=== PATIENT | male | born 1955 | race Caucasian/White ===

== ENCOUNTER 2016-12-18 08:51 | Outpatient (CLI) | payer MEDICAID | END 2016-12-18 08:52 | disposition home or self-care (01) | DX: N05.9 Unspecified nephritic syndrome with unspecified morphologic changes (principal); R80.9 Proteinuria, unspecified ==

== ENCOUNTER 2016-12-18 08:54 | Outpatient (CLI) | payer MEDICAID | END 2016-12-18 08:55 | disposition home or self-care (01) | DX: Z00.8 Encounter for other general examination (principal) ==

== ENCOUNTER 2017-01-23 10:36 | Outpatient (CLI) | payer MEDICAID | END 2017-01-23 10:37 | DX: I42.9 Cardiomyopathy, unspecified (principal); I49.3 Ventricular premature depolarization; E78.5 Hyperlipidemia, unspecified; F17.200 Nicotine dependence, unspecified, uncomplicated; I73.9 Peripheral vascular disease, unspecified; R60.0 Localized edema; N18.9 Chronic kidney disease, unspecified ==

== ENCOUNTER 2017-03-15 07:32 | Outpatient (CLI) | payer MEDICAID | END 2017-03-15 07:33 | disposition home or self-care (01) | DX: K76.89 Other specified diseases of liver (principal) ==

== ENCOUNTER 2017-03-19 21:16 | Outpatient (CLI) | payer MEDICAID | END 2017-03-19 21:17 | disposition home or self-care (01) | DX: E11.9 Type 2 diabetes mellitus without complications (principal); E87.5 Hyperkalemia; F10.10 Alcohol abuse, uncomplicated ==

== ENCOUNTER 2017-03-19 21:18 | Outpatient (CLI) | payer MEDICAID | END 2017-03-19 21:19 | disposition home or self-care (01) | DX: R80.9 Proteinuria, unspecified (principal) ==

== ENCOUNTER 2017-03-21 10:28 | Outpatient (CLI) | payer MEDICAID | END 2017-03-21 10:29 | DX: E53.8 Deficiency of other specified B group vitamins (principal); E11.9 Type 2 diabetes mellitus without complications ==

== ENCOUNTER 2017-08-06 20:22 | Outpatient (CLI) | payer MEDICAID ==
[2017-08-06 19:12] LABS: CALCIUM 9.3 mg/dL (8.5-10.3); CREATININE 1.9 mg/dL (0.6-1.2)
[2017-08-06 19:28] LABS: HEMOGLOBIN A1C 1.27 g/dL
== END 2017-08-06 20:23 | disposition home or self-care (01) ==
LOC: LAB.N 20:22
PROVIDERS: ATTEND Nurse Practitioner Gerontology
DX: E11.9 Type 2 diabetes mellitus without complications (principal); N05.9 Unspecified nephritic syndrome with unspecified morphologic changes; R80.9 Proteinuria, unspecified
CPT/HCPCS: 36415; 80048; 82570; 83036; 84156

== ENCOUNTER 2017-10-14 17:33 | Outpatient (CLI) | payer MEDICAID ==
[2017-10-14 13:58] LABS: ALBUMIN/GLOBULIN RATIO 1.3 (1.0-2.2); BILIRUBIN,TOTAL 0.4 mg/dL (0.2-1.0); BUN - BLOOD UREA NITROGEN 39 mg/dL (6-20); CALCIUM 8.8 mg/dL (8.5-10.3); CARBON DIOXIDE - CO2 21 mmol/L (21-32); CHLORIDE 106 mmol/L (101-111); CREATININE 2.2 mg/dL (0.6-1.2); GFR - MDRD 30 (>89); GLUCOSE 101 mg/dL (70-100); MAGNESIUM 1.4 mg/dL (1.7-2.8); POTASSIUM 5.3 mmol/L (3.5-5.0); SODIUM 139 mmol/L (135-145); TOTAL PROTEIN 6.8 g/dL (6.7-8.2)
[2017-10-16 13:02] LABS: TEST RESULT REPORT
[2017-10-16 13:02] LABS: TEST RESULT REPORT
== END 2017-10-14 17:34 | disposition home or self-care (01) ==
LOC: LAB.N 17:33
PROVIDERS: ATTEND Specialist
DX: I42.9 Cardiomyopathy, unspecified (principal); I49.3 Ventricular premature depolarization; I10 Essential (primary) hypertension; E78.5 Hyperlipidemia, unspecified; I73.9 Peripheral vascular disease, unspecified; R60.0 Localized edema; N18.9 Chronic kidney disease, unspecified; F32.9 Major depressive disorder, single episode, unspecified; E10.9 Type 1 diabetes mellitus without complications; Z72.0 Tobacco use
CPT/HCPCS: 36415; 80053; 81599; 82465; 83704; 83718; 83735; 84478

== ENCOUNTER 2017-11-08 08:00 | Outpatient (CLI) | payer MEDICAID ==
[2017-11-08 19:03] LABS: CALCIUM 8.3 mg/dL (8.5-10.3); CREATININE 1.3 mg/dL (0.6-1.2); POTASSIUM 3.4 mmol/L (3.5-5.0)
== END 2017-11-08 08:01 | disposition home or self-care (01) ==
LOC: LAB.N 08:00
PROVIDERS: ATTEND Internal Medicine Nephrology
DX: N05.9 Unspecified nephritic syndrome with unspecified morphologic changes (principal)
CPT/HCPCS: 36415; 80048

== ENCOUNTER 2017-11-27 13:02 | Outpatient (CLI) | payer MEDICAID ==
[2017-11-27 19:32] LABS: CALCIUM 8.9 mg/dL (8.5-10.3); CREATININE 1.1 mg/dL (0.6-1.2)
== END 2017-11-27 13:03 | disposition home or self-care (01) ==
LOC: LAB.N 13:02
PROVIDERS: ATTEND Internal Medicine Nephrology
DX: N05.9 Unspecified nephritic syndrome with unspecified morphologic changes (principal)
CPT/HCPCS: 36415; 80048

== ENCOUNTER 2017-12-09 13:30 | Outpatient (CLI) | payer MEDICAID ==
[2017-12-09 19:16] LABS: BASOPHILS # (AUTO) 0.1 10^3/uL (0.0-0.1); BASOPHILS % (AUTO) 0.9 %; EOSINOPHILS # (AUTO) 0.5 10^3/uL (0.0-0.7); EOSINOPHILS % (AUTO) 6.5 %; HGB - HEMOGLOBIN 13.2 g/dL (14.0-18.0); LYMPHOCYTES % (AUTO) 14.1 %; MEAN CORPUSCULAR HEMOGLOBIN 31.3 pg (27.0-31.0); MEAN CORPUSCULAR HGB CONC 32.9 g/dL (32.0-36.0); MEAN CORPUSCULAR VOLUME 95.1 fL (80.0-94.0); MEAN PLATELET VOLUME 8.4 fL (7.4-11.4); MONOCYTES # (AUTO) 0.4 10^3/uL (0.0-1.0); MONOCYTES % (AUTO) 6.2 %; NEUTROPHILS % (AUTO) 72.3 %; PLT - PLATELET COUNT 168 10^3/uL (130-450); RED BLOOD COUNT 4.23 10^6/uL (4.70-6.10); RED CELL DISTRIBUTION WIDTH 14.5 % (12.0-15.0)
[2017-12-09 19:26] LABS: ALBUMIN/GLOBULIN RATIO 1.4 (1.0-2.2); ALKALINE PHOSPHATASE 65 IU/L (42-121); ALT ALANINE AMINOTRANSFERASE < 10 IU/L (10-60); AST ASPARTATE AMINOTRANSFERASE 11 IU/L (10-42); BILIRUBIN,TOTAL 0.9 mg/dL (0.2-1.0); BUN - BLOOD UREA NITROGEN 35 mg/dL (6-20); CALCIUM 9.1 mg/dL (8.5-10.3); CARBON DIOXIDE - CO2 27 mmol/L (21-32); CHLORIDE 97 mmol/L (101-111); CREATININE 1.4 mg/dL (0.6-1.2); GFR - MDRD 51 (>89); GLUCOSE 301 mg/dL (70-100); SODIUM 130 mmol/L (135-145); TOTAL PROTEIN 6.8 g/dL (6.7-8.2)
== END 2017-12-09 13:31 | disposition home or self-care (01) ==
LOC: LAB.N 13:30
PROVIDERS: ATTEND Physician Assistant
DX: I42.8 Other cardiomyopathies (principal); N28.9 Disorder of kidney and ureter, unspecified
CPT/HCPCS: 36415; 80053; 85025

== ENCOUNTER 2017-12-16 08:00 | Outpatient (CLI) | payer MEDICAID ==
[2017-12-16 19:35] LABS: BASOPHILS # (AUTO) 0.1 10^3/uL (0.0-0.1); BASOPHILS % (AUTO) 1.7 %; EOSINOPHILS # (AUTO) 0.6 10^3/uL (0.0-0.7); EOSINOPHILS % (AUTO) 7.9 %; LYMPHOCYTES # (AUTO) 1.1 10^3/uL (1.5-3.5); LYMPHOCYTES % (AUTO) 15.9 %; MEAN CORPUSCULAR HEMOGLOBIN 31.2 pg (27.0-31.0); MEAN CORPUSCULAR HGB CONC 32.1 g/dL (32.0-36.0); MEAN CORPUSCULAR VOLUME 97.2 fL (80.0-94.0); MEAN PLATELET VOLUME 9.5 fL (7.4-11.4); MONOCYTES # (AUTO) 0.5 10^3/uL (0.0-1.0); MONOCYTES % (AUTO) 7.8 %; NEUTROPHILS # (AUTO) 4.7 10^3/uL (1.5-6.6); NEUTROPHILS % (AUTO) 66.7 %; PLT - PLATELET COUNT 203 10^3/uL (130-450); RED BLOOD COUNT 4.48 10^6/uL (4.70-6.10); RED CELL DISTRIBUTION WIDTH 14.8 % (12.0-15.0)
[2017-12-16 19:51] LABS: ALBUMIN/GLOBULIN RATIO 1.3 (1.0-2.2); ALKALINE PHOSPHATASE 77 IU/L (42-121); ALT ALANINE AMINOTRANSFERASE 11 IU/L (10-60); AST ASPARTATE AMINOTRANSFERASE 12 IU/L (10-42); BILIRUBIN,TOTAL 0.8 mg/dL (0.2-1.0); BUN - BLOOD UREA NITROGEN 35 mg/dL (6-20); CALCIUM 9.5 mg/dL (8.5-10.3); CARBON DIOXIDE - CO2 30 mmol/L (21-32); CHLORIDE 91 mmol/L (101-111); CHOL/HDL RATIO 4.7 (<5.0); CHOLESTEROL 189 mg/dL; CREATININE 1.7 mg/dL (0.6-1.2); GFR - MDRD 41 (>89); GLUCOSE 376 mg/dL (70-100); HB2 TOTAL 15.3 g/dL; HDL CHOLESTEROL 40 mg/dL; HEMOGLOBIN A1C 1.24 g/dL; HEMOGLOBIN A1C % 9.6 % (4.6-6.2); LDL CHOLESTEROL,CALCULATED 72 mg/dL; LDL/HDL RATIO 1.8 (<3.6); SODIUM 131 mmol/L (135-145); TOTAL PROTEIN 7.1 g/dL (6.7-8.2); VLDL CHOLESTEROL 77 mg/dL
== END 2017-12-16 08:01 | disposition home or self-care (01) ==
LOC: LAB.N 08:00
PROVIDERS: ATTEND Nurse Practitioner Gerontology
DX: E11.22 Type 2 diabetes mellitus with diabetic chronic kidney disease (principal); I12.9 Hypertensive chronic kidney disease with stage 1 through stage 4 chronic kidney disease, or unspecified chronic kidney disease; N18.9 Chronic kidney disease, unspecified
CPT/HCPCS: 36415; 80053; 80061; 83036; 83721; 85025

== ENCOUNTER 2018-02-07 08:00 | Outpatient (CLI) | payer MEDICAID ==
[2018-02-07 19:10] LABS: ALBUMIN 4.1 g/dL (3.2-5.5); ALBUMIN/GLOBULIN RATIO 1.4 (1.0-2.2); ALKALINE PHOSPHATASE 71 IU/L (42-121); ALT ALANINE AMINOTRANSFERASE < 10 IU/L (10-60); AST ASPARTATE AMINOTRANSFERASE 11 IU/L (10-42); BILIRUBIN,TOTAL 0.9 mg/dL (0.2-1.0); BUN - BLOOD UREA NITROGEN 29 mg/dL (6-20); CALCIUM 9.3 mg/dL (8.5-10.3); CARBON DIOXIDE - CO2 26 mmol/L (21-32); CHLORIDE 102 mmol/L (101-111); CREATININE 1.2 mg/dL (0.6-1.2); GFR - MDRD 61 (>89); GLUCOSE 320 mg/dL (70-100); MAGNESIUM 1.8 mg/dL (1.7-2.8); SODIUM 136 mmol/L (135-145); TOTAL PROTEIN 7.1 g/dL (6.7-8.2)
== END 2018-02-07 08:01 | disposition home or self-care (01) ==
LOC: LAB.N 08:00
PROVIDERS: ATTEND Specialist
DX: I42.9 Cardiomyopathy, unspecified (principal); R60.9 Edema, unspecified
CPT/HCPCS: 36415; 80053; 83735; 83880

== ENCOUNTER 2018-02-20 08:00 | Outpatient (CLI) | payer MEDICAID ==
[2018-02-20 19:20] LABS: CALCIUM 8.9 mg/dL (8.5-10.3); CREATININE 2.2 mg/dL (0.6-1.2); MAGNESIUM 2.1 mg/dL (1.7-2.8)
== END 2018-02-20 08:01 | disposition home or self-care (01) ==
LOC: LAB.N 08:00
PROVIDERS: ATTEND Specialist
DX: I12.9 Hypertensive chronic kidney disease with stage 1 through stage 4 chronic kidney disease, or unspecified chronic kidney disease (principal); N18.9 Chronic kidney disease, unspecified
CPT/HCPCS: 36415; 80048; 83735

== ENCOUNTER 2018-03-14 07:36 | Outpatient (CLI) | payer MEDICAID ==
[2018-03-14 13:40] LABS: CALCIUM 8.9 mg/dL (8.5-10.3); CREATININE 1.3 mg/dL (0.6-1.2); MAGNESIUM 1.6 mg/dL (1.7-2.8)
== END 2018-03-14 07:37 | disposition home or self-care (01) ==
LOC: LAB.N 07:36
PROVIDERS: ATTEND Specialist
DX: I42.9 Cardiomyopathy, unspecified (principal); R06.09 Other forms of dyspnea; L97.529 Non-pressure chronic ulcer of other part of left foot with unspecified severity
CPT/HCPCS: 36415; 80048; 83735; 83880; 87070; 87077; 87205

== ENCOUNTER 2018-03-20 08:00 | Outpatient (CLI) | payer MEDICAID ==
[2018-03-20 19:17] LABS: BASOPHILS # (AUTO) 0.1 10^3/uL (0.0-0.1); BASOPHILS % (AUTO) 1.3 %; EOSINOPHILS # (AUTO) 0.2 10^3/uL (0.0-0.7); EOSINOPHILS % (AUTO) 4.8 %; HGB - HEMOGLOBIN 13.2 g/dL (14.0-18.0); LYMPHOCYTES # (AUTO) 0.7 10^3/uL (1.5-3.5); MEAN CORPUSCULAR HEMOGLOBIN 28.8 pg (27.0-31.0); MEAN CORPUSCULAR HGB CONC 31.3 g/dL (32.0-36.0); MEAN CORPUSCULAR VOLUME 91.7 fL (80.0-94.0); MEAN PLATELET VOLUME 8.7 fL (7.4-11.4); MONOCYTES # (AUTO) 0.4 10^3/uL (0.0-1.0); MONOCYTES % (AUTO) 7.1 %; NEUTROPHILS # (AUTO) 3.7 10^3/uL (1.5-6.6); NEUTROPHILS % (AUTO) 72.8 %; PLT - PLATELET COUNT 182 10^3/uL (130-450); RED BLOOD COUNT 4.59 10^6/uL (4.70-6.10); RED CELL DISTRIBUTION WIDTH 15.5 % (12.0-15.0); WHITE BLOOD COUNT 5.1 x10^3/uL (4.8-10.8)
[2018-03-20 19:52] LABS: HB2 TOTAL 14.7 g/dL; HEMOGLOBIN A1C 1.53 g/dL; HEMOGLOBIN A1C % 11.7 % (4.6-6.2)
[2018-03-20 19:55] LABS: ALBUMIN 3.7 g/dL (3.2-5.5); ALBUMIN/GLOBULIN RATIO 1.3 (1.0-2.2); ALKALINE PHOSPHATASE 110 IU/L (42-121); ALT ALANINE AMINOTRANSFERASE 11 IU/L (10-60); AST ASPARTATE AMINOTRANSFERASE 17 IU/L (10-42); BILIRUBIN,TOTAL 0.2 mg/dL (0.2-1.0); BUN - BLOOD UREA NITROGEN 32 mg/dL (6-20); CARBON DIOXIDE - CO2 28 mmol/L (21-32); CHLORIDE 98 mmol/L (101-111); CHOL/HDL RATIO 3.7 (<5.0); CHOLESTEROL 93 mg/dL; GFR - MDRD 34 (>89); GLUCOSE 354 mg/dL (70-100); HDL CHOLESTEROL 25 mg/dL; LDL CHOLESTEROL,CALCULATED 10 mg/dL; LDL/HDL RATIO 0.4 (<3.6); SODIUM 132 mmol/L (135-145); TOTAL PROTEIN 6.6 g/dL (6.7-8.2); VLDL CHOLESTEROL 58 mg/dL
== END 2018-03-20 08:01 ==
LOC: LAB.N 08:00
PROVIDERS: ATTEND Specialist
DX: E87.5 Hyperkalemia (principal); E87.1 Hypo-osmolality and hyponatremia; I49.3 Ventricular premature depolarization; I13.0 Hypertensive heart and chronic kidney disease with heart failure and stage 1 through stage 4 chronic kidney disease, or unspecified chronic kidney disease; I50.22 Chronic systolic (congestive) heart failure; E11.22 Type 2 diabetes mellitus with diabetic chronic kidney disease; N18.9 Chronic kidney disease, unspecified; Z79.4 Long term (current) use of insulin
CPT/HCPCS: 36415; 80053; 80061; 83036; 83721; 83735; 83880; 84443; 85025

== ENCOUNTER 2018-04-02 13:00 | Outpatient (CLI) | payer MEDICAID ==
[2018-04-02 20:22] LABS: CALCIUM 8.7 mg/dL (8.5-10.3); CREATININE 1.5 mg/dL (0.6-1.2)
== END 2018-04-02 13:01 ==
LOC: LAB.N 13:00
PROVIDERS: ATTEND Nurse Practitioner Gerontology
DX: E87.5 Hyperkalemia (principal); E87.1 Hypo-osmolality and hyponatremia
CPT/HCPCS: 36415; 80048

== ENCOUNTER 2018-05-28 08:00 | Outpatient (CLI) | payer MEDICAID ==
[2018-05-28 13:07] LABS: CREATININE 1.9 mg/dL (0.6-1.2)
== END 2018-05-28 08:01 | disposition home or self-care (01) ==
LOC: LAB.N 08:00
PROVIDERS: ATTEND Internal Medicine Nephrology
DX: N05.9 Unspecified nephritic syndrome with unspecified morphologic changes (principal)
CPT/HCPCS: 36415; 80048

== ENCOUNTER 2018-08-07 09:00 | Outpatient (CLI) | payer MEDICAID ==
[2018-08-07 19:11] LABS: ALBUMIN 4.2 g/dL (3.2-5.5); ALBUMIN/GLOBULIN RATIO 1.3 (1.0-2.2); BILIRUBIN,TOTAL 0.6 mg/dL (0.2-1.0); CALCIUM 9.8 mg/dL (8.5-10.3); CREATININE 1.5 mg/dL (0.6-1.2); TOTAL PROTEIN 7.5 g/dL (6.7-8.2)
== END 2018-08-07 09:01 | disposition home or self-care (01) ==
LOC: LAB.N 09:00
PROVIDERS: ATTEND Specialist
DX: I50.22 Chronic systolic (congestive) heart failure (principal); I42.9 Cardiomyopathy, unspecified; I49.3 Ventricular premature depolarization
CPT/HCPCS: 36415; 80053; 83735; 83880

== ENCOUNTER 2018-08-14 10:41 | Outpatient (CLI) | payer MEDICAID | END 2018-08-14 10:42 | disposition home or self-care (01) | LOC: LAB.N 10:41 | PROVIDERS: ATTEND Nurse Practitioner Gerontology | DX: I50.9 Heart failure, unspecified (principal) | CPT/HCPCS: 36415; 83880 ==

== ENCOUNTER 2018-09-19 08:00 | Outpatient (CLI) | payer MEDICAID ==
[2018-09-19 18:51] LABS: HGB - HEMOGLOBIN 15.5 g/dL (14.0-18.0); MEAN CORPUSCULAR HEMOGLOBIN 29.5 pg (27.0-31.0); MEAN CORPUSCULAR HGB CONC 32.6 g/dL (32.0-36.0); MEAN CORPUSCULAR VOLUME 90.4 fL (80.0-94.0); MEAN PLATELET VOLUME 7.9 fL (7.4-11.4); RED BLOOD COUNT 5.27 10^6/uL (4.70-6.10); RED CELL DISTRIBUTION WIDTH 17.3 % (12.0-15.0)
[2018-09-19 19:12] LABS: CREATININE 1.5 mg/dL (0.6-1.2); PHOSPHORUS 3.9 mg/dL (2.5-4.6)
[2018-09-19 19:32] LABS: HB2 TOTAL 16.4 g/dL; HEMOGLOBIN A1C 1.81 g/dL; HEMOGLOBIN A1C % 12.2 % (4.6-6.2)
[2018-09-19 19:34] LABS: CREATININE,URINE 65.9 mg/dL; PROTEIN/CREATININE RATIO,URINE 2.1 (<=0.2)
[2018-09-19 19:36] LABS: CALCIUM 8.8 mg/dL (8.5-10.3)
== END 2018-09-19 08:01 | disposition home or self-care (01) ==
LOC: LAB.N 08:00
PROVIDERS: ATTEND Internal Medicine Nephrology
DX: N05.9 Unspecified nephritic syndrome with unspecified morphologic changes (principal); R80.9 Proteinuria, unspecified; D70.9 Neutropenia, unspecified; D63.1 Anemia in chronic kidney disease; E83.30 Disorder of phosphorus metabolism, unspecified; N25.81 Secondary hyperparathyroidism of renal origin
CPT/HCPCS: 36415; 80048; 82043; 82570; 83036; 83970; 84100; 84156; 85027

== ENCOUNTER 2019-01-19 08:00 | Outpatient (CLI) | payer MEDICAID ==
[2019-01-19 13:49] LABS: CREATININE 1.7 mg/dL (0.6-1.2)
[2019-01-19 13:53] LABS: CALCIUM 9.2 mg/dL (8.5-10.3)
[2019-01-19 14:05] LABS: CREATININE,URINE 47.8 mg/dL; MICROALBUM/CREATININE RATIO,UR 1633.9 ug/mg (<30.0); MICROALBUMIN,URINE 78.1 mg/dL (0-300.0)
[2019-01-19 14:24] LABS: HB2 TOTAL 16.7 g/dL; HEMOGLOBIN A1C 2.37 g/dL; HEMOGLOBIN A1C % 15.1 % (4.6-6.2)
== END 2019-01-19 23:59 | disposition home or self-care (01) ==
LOC: LAB.N 08:00
PROVIDERS: ATTEND Nurse Practitioner Gerontology
DX: E11.621 Type 2 diabetes mellitus with foot ulcer (principal)
CPT/HCPCS: 36415; 80048; 82043; 82570; 83036

== ENCOUNTER 2019-05-11 08:00 | Outpatient (CLI) | payer MEDICAID | END 2019-05-11 23:59 | disposition home or self-care (01) | LOC: LAB.R 08:00 | PROVIDERS: ATTEND Family Medicine | DX: R39.9 Unspecified symptoms and signs involving the genitourinary system (principal) | CPT/HCPCS: 87077; 87086; 87181 ==

== ENCOUNTER 2019-07-07 08:00 | Outpatient (CLI) | payer MEDICAID ==
[2019-07-07 18:41] LABS: BASOPHILS # (AUTO) 0.1 10^3/uL (0.0-0.1); BASOPHILS % (AUTO) 0.8 %; EOSINOPHILS # (AUTO) 0.5 10^3/uL (0.0-0.7); EOSINOPHILS % (AUTO) 6.5 %; HGB - HEMOGLOBIN 13.8 g/dL (14.0-18.0); LYMPHOCYTES # (AUTO) 1.7 10^3/uL (1.5-3.5); LYMPHOCYTES % (AUTO) 22.3 %; MEAN CORPUSCULAR HEMOGLOBIN 25.7 pg (27.0-31.0); MEAN CORPUSCULAR HGB CONC 29.1 g/dL (32.0-36.0); MEAN CORPUSCULAR VOLUME 88.4 fL (80.0-94.0); MEAN PLATELET VOLUME 12.1 fL (7.4-11.4); MONOCYTES # (AUTO) 0.5 10^3/uL (0.0-1.0); MONOCYTES % (AUTO) 6.9 %; NEUTROPHILS # (AUTO) 4.7 10^3/uL (1.5-6.6); NEUTROPHILS % (AUTO) 63.1 %; PLT - PLATELET COUNT 178 10^3/uL (130-450); RED BLOOD COUNT 5.36 10^6/uL (4.70-6.10); WHITE BLOOD COUNT 7.4 x10^3/uL (4.8-10.8)
[2019-07-07 18:51] LABS: ALBUMIN 3.9 g/dL (3.2-5.5); ALBUMIN/GLOBULIN RATIO 1.1 (1.0-2.2); ALKALINE PHOSPHATASE 79 IU/L (42-121); ALT ALANINE AMINOTRANSFERASE < 10 IU/L (10-60); AST ASPARTATE AMINOTRANSFERASE 10 IU/L (10-42); BILIRUBIN,TOTAL 0.6 mg/dL (0.2-1.0); BUN - BLOOD UREA NITROGEN 41 mg/dL (6-20); CALCIUM 8.9 mg/dL (8.5-10.3); CARBON DIOXIDE - CO2 28 mmol/L (21-32); CHLORIDE 99 mmol/L (101-111); GFR - MDRD 34 (>89); GLUCOSE 80 mg/dL (70-100); SODIUM 137 mmol/L (135-145); TOTAL PROTEIN 7.3 g/dL (6.7-8.2)
[2019-07-07 19:00] LABS: CRP - C-REACTIVE PROTEIN < 1.0 mg/dL (0-1.0)
== END 2019-07-07 23:59 | disposition home or self-care (01) ==
LOC: LAB.N 08:00
PROVIDERS: ATTEND Family Medicine
DX: S91.302A Unspecified open wound, left foot, initial encounter (principal)
CPT/HCPCS: 36415; 80053; 85025; 85651; 86140

== ENCOUNTER 2019-07-07 13:01 | Outpatient (CLI) | payer MEDICAID ==
--- NOTE | 2019-07-09 09:28 | XRAY Report ---
Reason: EVAL FOR OSTEOMELITIS Procedure Date: 07/07/2019 Accession Number: [id number] / [id number] Procedure: XRN - Calcaneus LT CPT Code: FULL RESULT: EXAM: LEFT CALCANEUS RADIOGRAPHY EXAM DATE: 07/07/2019 01:19 PM. CLINICAL HISTORY: Evaluate for osteomyelitis. COMPARISON: None. TECHNIQUE: 2 views. FINDINGS: Bones: No fracture, dislocation or subluxation. No periosteal reaction or bony erosion. Joints: No significant joint space narrowing. Soft Tissues: Small vessel calcifications are noted. No soft tissue air or appreciable soft tissue defect. IMPRESSION: No plain film evidence of osteomyelitis. [facility]
== END 2019-07-07 13:02 | disposition home or self-care (01) ==
LOC: DI.N 13:01
PROVIDERS: ATTEND Family Medicine
DX: E11.621 Type 2 diabetes mellitus with foot ulcer (principal); L97.422 Non-pressure chronic ulcer of left heel and midfoot with fat layer exposed; S91.302A Unspecified open wound, left foot, initial encounter
CPT/HCPCS: 36415; 80053; 85025; 85651; 86140

== ENCOUNTER 2019-09-08 09:59 | Outpatient (CLI) | payer MEDICAID ==
--- NOTE | 2019-09-09 08:49 | XRAY Report ---
Reason: RIB PAIN Procedure Date: 09/08/2019 Accession Number: [id number] / [id number] Procedure: XRN - Ribs 2 View LT CPT Code: FULL RESULT: EXAM: LEFT RIB RADIOGRAPHY EXAM DATE: 09/08/2019 10:30 AM. CLINICAL HISTORY: Rib pain. COMPARISON: CHEST 2 VIEW PA/LAT 02/09/2016. TECHNIQUE: 2 views. FINDINGS: Bones: Normal. No fracture or bone lesion. Lungs: No focal opacities evident. No pneumothorax or pleural effusions. Mediastinum: Heart and cardiomediastinal contours are unremarkable. Other: None. IMPRESSION: No left-sided rib fractures detected. RAD[facility]
== END 2019-09-08 10:00 | disposition home or self-care (01) ==
LOC: DI.N 09:59
PROVIDERS: ATTEND Nurse Practitioner Gerontology
DX: R07.81 Pleurodynia (principal)

== ENCOUNTER 2019-09-08 10:32 | Outpatient (CLI) | payer MEDICAID ==
[2019-09-08 12:20] LABS: BASOPHILS # (AUTO) 0.1 10^3/uL (0.0-0.1); EOSINOPHILS # (AUTO) 0.4 10^3/uL (0.0-0.7); HGB - HEMOGLOBIN 16.8 g/dL (14.0-18.0); LYMPHOCYTES # (AUTO) 1.9 10^3/uL (1.5-3.5); MEAN CORPUSCULAR HEMOGLOBIN 27.5 pg (27.0-31.0); MEAN CORPUSCULAR HGB CONC 31.9 g/dL (32.0-36.0); MEAN CORPUSCULAR VOLUME 86.2 fL (80.0-94.0); MEAN PLATELET VOLUME 10.5 fL (7.4-11.4); MONOCYTES # (AUTO) 0.6 10^3/uL (0.0-1.0); MONOCYTES % (AUTO) 8.7 %; NEUTROPHILS % (AUTO) 56.6 %; PLT - PLATELET COUNT 185 10^3/uL (130-450); RED CELL DISTRIBUTION WIDTH 20.1 % (12.0-15.0); WHITE BLOOD COUNT 7.1 x10^3/uL (4.8-10.8)
[2019-09-08 12:22] LABS: ALBUMIN 4.3 g/dL (3.2-5.5); ALBUMIN/GLOBULIN RATIO 1.3 (1.0-2.2); ALKALINE PHOSPHATASE 85 IU/L (42-121); ALT ALANINE AMINOTRANSFERASE 10 IU/L (10-60); AST ASPARTATE AMINOTRANSFERASE 13 IU/L (10-42); BILIRUBIN,TOTAL 0.7 mg/dL (0.2-1.0); BUN - BLOOD UREA NITROGEN 59 mg/dL (6-20); CALCIUM 9.8 mg/dL (8.5-10.3); CARBON DIOXIDE - CO2 33 mmol/L (21-32); CHLORIDE 96 mmol/L (101-111); CHOL/HDL RATIO 5.5 (<5.0); CHOLESTEROL 188 mg/dL; CREATININE 2.4 mg/dL (0.6-1.2); GFR - MDRD 27 (>89); GLUCOSE 173 mg/dL (70-100); HDL CHOLESTEROL 34 mg/dL; MAGNESIUM 3.1 mg/dL (1.7-2.8); SODIUM 139 mmol/L (135-145); TOTAL PROTEIN 7.7 g/dL (6.7-8.2)
[2019-09-08 12:42] LABS: HB2 TOTAL 18.1 g/dL; HEMOGLOBIN A1C 2.05 g/dL; HEMOGLOBIN A1C % 12.5 % (4.6-6.2)
[2019-09-08 12:56] LABS: LDL CHOLESTEROL,DIRECT 66 mg/dL; LDLD/HDL RATIO 1.9 (<3.6)
[2019-09-08 13:37] LABS: PLATELET ESTIMATE, MANUAL NORMAL (130-450,000) (NORMAL); PLATELET MORPHOLOGY 1+ LARGE PLATELETS (NORMAL)
== END 2019-09-08 23:59 | disposition home or self-care (01) ==
LOC: LAB.N 10:32
PROVIDERS: ATTEND Nurse Practitioner Gerontology
DX: E79.0 Hyperuricemia without signs of inflammatory arthritis and tophaceous disease (principal); E78.5 Hyperlipidemia, unspecified; E11.65 Type 2 diabetes mellitus with hyperglycemia; I10 Essential (primary) hypertension; E83.42 Hypomagnesemia
CPT/HCPCS: 36415; 80053; 80061; 82043; 82570; 83036; 83721; 83735; 84550; 85025

== ENCOUNTER 2019-12-08 09:47 | Outpatient (CLI) | payer MEDICAID ==
[2019-12-08 11:59] LABS: CREATININE 2.1 mg/dL (0.6-1.2)
[2019-12-08 12:08] LABS: CREATININE,URINE 71.2 mg/dL; MICROALBUMIN,URINE 7.9 mg/dL (0-300.0)
[2019-12-08 12:23] LABS: HB2 TOTAL 16.3 g/dL; HEMOGLOBIN A1C 2.41 g/dL; HEMOGLOBIN A1C % 15.7 % (4.6-6.2)
== END 2019-12-08 23:59 | disposition home or self-care (01) ==
LOC: LAB.N 09:47
PROVIDERS: ATTEND Nurse Practitioner Gerontology
DX: E11.621 Type 2 diabetes mellitus with foot ulcer (principal)
CPT/HCPCS: 36415; 80048; 82043; 82570; 83036

== ENCOUNTER 2020-02-23 09:19 | Outpatient (CLI) | payer MEDICAID, MEDICARE ==
[2020-02-23 12:23] LABS: HB2 TOTAL 14.8 g/dL; HEMOGLOBIN A1C 1.76 g/dL
[2020-02-23 12:26] LABS: ALBUMIN 3.7 g/dL (3.2-5.5); ALBUMIN/GLOBULIN RATIO 1.3 (1.0-2.2); ALKALINE PHOSPHATASE 112 IU/L (42-121); ALT ALANINE AMINOTRANSFERASE 10 IU/L (10-60); AST ASPARTATE AMINOTRANSFERASE < 10 IU/L (10-42); BILIRUBIN,TOTAL 0.5 mg/dL (0.2-1.0); BUN - BLOOD UREA NITROGEN 67 mg/dL (6-20); CALCIUM 8.4 mg/dL (8.5-10.3); CARBON DIOXIDE - CO2 26 mmol/L (21-32); CHLORIDE 104 mmol/L (101-111); GLUCOSE 184 mg/dL (70-100); SODIUM 133 mmol/L (135-145); TOTAL PROTEIN 6.6 g/dL (6.7-8.2)
== END 2020-02-23 23:59 | disposition home or self-care (01) ==
LOC: LAB.WCP 09:19
PROVIDERS: ATTEND Family Medicine
DX: E11.65 Type 2 diabetes mellitus with hyperglycemia (principal); Z79.4 Long term (current) use of insulin
CPT/HCPCS: 36415; 80053; 83036

== ENCOUNTER 2020-03-02 08:00 | Outpatient (CLI) | payer MEDICARE | END 2020-03-02 23:59 | disposition home or self-care (01) | LOC: LAB.R 08:00 | PROVIDERS: ATTEND Family Medicine | DX: E11.621 Type 2 diabetes mellitus with foot ulcer (principal) | CPT/HCPCS: 87070; 87205 ==

== ENCOUNTER 2020-03-09 09:26 | Outpatient (CLI) | payer MEDICARE ==
--- NOTE | 2020-03-09 11:37 | XRAY Report ---
Reason: OSTEOMYELITIS Procedure Date: 03/09/2020 Accession Number: [id number] / [id number] Procedure: WCP - Foot 3 View RT CPT Code: Final Report FULL RESULT: EXAM: RIGHT FOOT RADIOGRAPHY EXAM DATE: 03/09/2020 09:26 AM. CLINICAL HISTORY: Osteomyelitis. Right foot ulcer. COMPARISON: None. TECHNIQUE: 3 views. FINDINGS: There is a 7 x 19 mm partially calcified nodule at and deep to the skin, located superficial to the caudal and lateral aspect of the fifth metatarsal head. This is located at the distal aspect of bandaging along the lateral right mid and forefoot. There is a subtle transverse lucency with cortical step-off at the mid to lateral aspect of the fifth metatarsal head adjacent to this finding. Concern would be for early osteomyelitis. Elsewhere, generalized bony demineralization without fracture or lytic change. Vascular calcifications are seen. IMPRESSION: Subtle cortical step-off and transverse lucency at the fifth metatarsal head, located just deep to a partially calcified nodule within the subcutaneous tissues at the area of concern. Concern is for early osteomyelitis. This could be further evaluated by MRI. [facility]
== END 2020-03-09 23:59 | disposition home or self-care (01) ==
LOC: DI.WCP 09:26
PROVIDERS: ATTEND Family Medicine
DX: E11.621 Type 2 diabetes mellitus with foot ulcer (principal); L97.511 Non-pressure chronic ulcer of other part of right foot limited to breakdown of skin

== ENCOUNTER 2020-10-10 15:13 | Outpatient (CLI) | payer MEDICARE, MEDICAID | END 2020-10-10 15:14 | disposition critical access hospital (66) | LOC: EMS 15:13 | PROVIDERS: ATTEND Surgery | DX: R47.81 Slurred speech (principal) | CPT/HCPCS: A0425; A0429 ==

== ENCOUNTER 2020-10-10 15:55 | Emergency (ER) | payer MEDICARE, MEDICAID ==
--- NOTE | 2020-10-10 16:08 | ED Physician Documentation ---
PD HPI FOCAL NEURO - Stated complaint Stated Complaint: SLURRED SPEECH - History obtained from History obtained from: Patient - History of Present Illness Timing - onset: Unknown Time of symptom onset unknown: Time of onset unknown Severity of deficit: Mild Weakness: Face, Leg, Right Numbness: No: Face, Arm, Hand, Leg, Foot, Right, Left Baseline status: positive: A&OX3, ambulatory, indep Similar symptoms before: Has not had sx before Recently seen: Not recently seen - Additional information Additional information: Patient is a 65-year-old male who presents to the emergency department after his daughter spoke to him on the phone and stated that his voice sounded slurred. She last spoke with him 2 days ago. He lives alone. He states he has not noticed the change. He states that his right leg "gave out on him" yesterday. Patient does state that his right leg still feels weak and is making it difficult to walk. Has not had any focal numbness today. EMS arrived to find a right-sided facial droop. Patient states he has never had a stroke before. No recent illness. No vomiting. No visual changes. No headache. No trauma. Patient states no changes to his medications. Review of Systems Ten Systems: 10 systems reviewed and negative Constitutional: denies: Fever, Chills Ears: denies: Ear pain Nose: denies: Rhinorrhea / runny nose, Congestion Throat: denies: Sore throat Cardiac: denies: Chest pain / pressure Respiratory: denies: Cough GI: denies: Nausea, Vomiting, Diarrhea Skin: denies: Rash Musculoskeletal: denies: Neck pain, Back pain Neurologic: denies: Confused, Altered mental status, Head injury, LOC PD PAST MEDICAL HISTORY - Past Medical History Past Medical History: Yes Cardiovascular: Hypertension, High cholesterol, Coronary artery disease, Peripheral Vascular Disease Respiratory: COPD Neuro: Peripheral neuropathy Endocrine/Autoimmune: Type 2 diabetes GI: Diverticulitis : Renal insuffiency HEENT: Other Psych: Depression, Anxiety - Past Surgical History Ortho: Amputation - Present Medications Home Medications: Ambulatory Orders Medication Instructions Recorded Confirmed Amlodipine Besylate 5 mg PO DAILY 06/27/18 06/27/18 Aspirin [Adult Aspirin] 81 mg PO DAILY 06/27/18 06/27/18 Atorvastatin Calcium 80 mg PO DAILY 06/27/18 06/27/18 Cetirizine [ZyrTEC] 10 mg PO DAILY 06/27/18 06/27/18 Cyanocobalamin [Vitamin B-12] 1,000 mcg IM ONCE 06/27/18 06/27/18 Furosemide 120 mg PO DAILY 06/27/18 06/27/18 Glipizide [Glipizide Xl] 10 mg PO DAILY 06/27/18 06/27/18 Hydralazine HCl 25 mg PO TID 06/27/18 06/27/18 Insulin Aspart [NovoLOG] 5 unit SUBQ BIDWM 06/27/18 06/27/18 Insulin Glargine [Lantus Solostar] 35 unit SUBQ QPM 06/27/18 06/27/18 Ipratropium/Albuterol [Combivent 4 gm IH QID PRN MDD 6 06/27/18 06/27/18 Respimat] Metoprolol Tartrate 100 mg PO BID 06/27/18 06/27/18 Pregabalin [Lyrica] 100 mg PO TID 06/27/18 06/27/18 Sertraline HCl 100 mg PO DAILY 06/27/18 06/27/18 Varenicline Tartrate [Chantix] 1 each PO DAILY 06/27/18 06/27/18 allopurinoL [Allopurinol] 200 mg PO DAILY 06/27/18 06/27/18 - Allergies Allergies/Adverse Reactions: Allergies Allergy/AdvReac Type Severity Reaction Status Date / Time bee venom protein (honey bee) Allergy Unknown Verified 10/10/20 16:04 codeine Allergy Unknown Verified 10/10/20 16:04 Penicillins Allergy Unknown Verified 10/10/20 16:04 - Social History Smoking Status: Current every day smoker PD ED PE NORMAL - Vitals Vital signs reviewed: Yes - General General: Alert and oriented X 3, No acute distress - HEENT HEENT: Moist mucous membranes, Other (Positive Madrigal's phenomena on the right. Decreased motion of the right eyebrow when raising upward. Flattening of the nasolabial fold on the right with a slight droop to the corner of the right mouth.) - Neck Neck: Supple, no meningeal sign - Cardiac Cardiac: RRR - Respiratory Respiratory: No respiratory distress, Clear bilaterally - Abdomen Abdomen: Soft, Non tender, Non distended - Derm Derm: Warm and dry - Neuro Neuro: Alert and oriented X 3, No sensory deficit, Other (mild slurred speech) Eye Opening: Spontaneous Motor: Obeys Commands Verbal: Oriented GCS Score: 15 - Psych Psych: Normal mood, Normal affect NIHSS - Time Time: 16:05 - Level of Consciousness Level of consciousness: (0) Alert, Keenly responsive LOC Questions: (0) Answers both Q's correct LOC Commands: (0) Performs both correctly - Gaze Best Gaze: (0) Normal - Visual Visual: (0) No loss - Facial Palsy Facial Palsy: (2) Partial paralysis - Motor Arms (both separate) Motor Arm (right): (0) No drift Motor Arm (left): (0) No drift - Motor Legs (both separate) Motor Leg (right): (0) No drift Motor Leg (left): (0) No drift - Limb Ataxia Limb Ataxia: (0) Absent - Sensory Sensory: (0) Normal - Best Language Best Language: (0) No aphasia - Dysarthria Dysarthria: (1) [id number] dysarthria - Extinction and Inattention (formally neg Extinction and inattention: (0) No abnormality - Total Score/Results Total Score/Result: 3 Results - Vitals Vitals: Vital Signs - 24 hr 10/10/20 10/10/20 10/10/20 15:58 16:38 17:08 Temperature 36.1 C L Heart Rate 75 90 87 Respiratory 19 20 20 Rate Blood Pressure 143/81 H 147/76 H 143/74 H O2 Saturation 94 95 92 10/10/20 10/10/20 10/10/20 17:30 18:00 18:30 Temperature Heart Rate 86 84 83 Respiratory 19 20 19 Rate Blood Pressure 142/75 H 152/80 H 138/75 H O2 Saturation 92 99 94 10/10/20 19:00 Temperature Heart Rate 85 Respiratory 18 Rate Blood Pressure 104/64 O2 Saturation 92 Oxygen O2 Source Room air - EKG (time done) 1623 Rate: Rate (enter#) (90) Rhythm: NSR [place]: Normal Intervals: Normal UT QRS: Normal, LVH Ischemia: Non specific changes - Labs Labs: Laboratory Tests 10/10/20 10/10/20 10/10/20 16:07 16:07 16:42 WBC 9.4 RBC 4.75 Hgb 15.4 Hct 44.4 MCV 93.5 MCH 32.4 H MCHC 34.7 RDW 13.2 Plt Count 124 L MPV 11.1 Neut # (Auto) 7.9 H Lymph # (Auto) 0.4 L [place] # (Auto) 0.9 Eos # (Auto) 0.1 Baso # (Auto) 0.0 Absolute Nucleated RBC 0.00 Nucleated RBC % 0.0 PT 11.6 INR 1.0 APTT 30.1 Sodium 137 Potassium 5.2 H Chloride 98 L Carbon Dioxide 27 Anion Gap 12.0 BUN 37 H Creatinine 2.0 H Estimated GFR (MDRD) 34 L Glucose 212 H Calcium 8.9 Total Bilirubin 0.8 AST 11 ALT 10 Alkaline Phosphatase 83 Total Protein 6.9 Albumin 4.0 Globulin 2.9 Albumin/Globulin Ratio 1.4 - Rads (name of study) head CT Radiology: Prelim report reviewed, EMP read contemporaneously, See rad report (No acute abnormality) PD MEDICAL DECISION MAKING - ED course Complexity details: reviewed old records, reviewed results, re-evaluated patient, considered differential, d/w patient, d/w political consultant ED course: Patient with symptoms concerning for stroke that started yesterday. Possible Madrigal's palsy, but given the right leg weakness, I think he deserves further evaluation for potential stroke. Also has several significant comorbidities for possible stroke. Recommended admission here, patient adamantly refuses to be admitted to this hospital. He states that [facility] is the only hospital he will be admitted to. Had an echocardiogram there 3 days ago. Discussed the case with NICOLE Sinha, hospitalist at [facility] who graciously accepts in transf er. COBRA forms completed. This document was made in part using voice recognition software. While efforts are made to proofread this document, sound alike and grammatical errors may occur. Departure - Departure Disposition: 02 Transfer Acute Care Hosp Clinical Impression: Stroke-like symptoms Condition: Stable
[2020-10-10 16:13] LABS: BASOPHILS % (AUTO) 0.4 %; EOSINOPHILS # (AUTO) 0.1 10^3/uL (0.0-0.7); EOSINOPHILS % (AUTO) 0.9 %; HGB - HEMOGLOBIN 15.4 g/dL (14.0-18.0); LYMPHOCYTES # (AUTO) 0.4 10^3/uL (1.5-3.5); LYMPHOCYTES % (AUTO) 4.7 %; MEAN CORPUSCULAR HEMOGLOBIN 32.4 pg (27.0-31.0); MEAN CORPUSCULAR HGB CONC 34.7 g/dL (32.0-36.0); MEAN CORPUSCULAR VOLUME 93.5 fL (80.0-94.0); MEAN PLATELET VOLUME 11.1 fL (7.4-11.4); MONOCYTES # (AUTO) 0.9 10^3/uL (0.0-1.0); MONOCYTES % (AUTO) 9.9 %; NEUTROPHILS # (AUTO) 7.9 10^3/uL (1.5-6.6); NEUTROPHILS % (AUTO) 83.7 %; PLT - PLATELET COUNT 124 10^3/uL (130-450); RED BLOOD COUNT 4.75 10^6/uL (4.70-6.10); RED CELL DISTRIBUTION WIDTH 13.2 % (12.0-15.0); WHITE BLOOD COUNT 9.4 x10^3/uL (4.8-10.8)
[2020-10-10 16:19] LABS: PT - PROTHROMBIN TIME 11.6 secs (9.9-12.6)
--- NOTE | 2020-10-10 16:25 | CT Report ---
PROCEDURE: HEAD WO INDICATIONS: R sided facial droop, slurred speech x 24 hours. TECHNIQUE: Noncontrast 4.5 mm thick angled axial sections acquired from the foramen magnum to the vertex. For r adiation dose reduction, the following was used: automated exposure control, adjustment of mA and/or kV according to patient size. COMPARISON: None. FINDINGS: Image quality: Excellent. CSF spaces: Basal cisterns are patent. No extra-axial fluid collections. Ventricles are normal in size and shape. Brain: No midline shift. No intracranial masses or hemorrhage. Dubose-white matter interface is norm al. Skull and face: Calvarium and visualized facial bones are intact, without suspicious lesions. Sinuses: Visualized sinuses and mastoids are clear. IMPRESSION: No acute intracranial finding. Reviewed by: Sunil Matt MD on 10/10/2020 4:24 PM PST Approved by: Sunil Matt MD on 10/10/2020 4:24 PM PST Station ID: [id number]
[2020-10-10 16:26] LABS: PARTIAL THROMBOPLASTIN TIME 30.1 secs (24.9-33.3)
[2020-10-10 17:01] LABS: ALBUMIN/GLOBULIN RATIO 1.4 (1.0-2.2); BILIRUBIN,TOTAL 0.8 mg/dL (0.2-1.0); CALCIUM 8.9 mg/dL (8.5-10.3); TOTAL PROTEIN 6.9 g/dL (6.7-8.2)
[2020-10-10 20:51] VITALS: BP 127/64
== END 2020-10-10 20:52 | disposition short-term general hospital (02) ==
LOC: EDUNIT# → ED 15:55
DX: R29.810 Facial weakness (principal); R47.81 Slurred speech; R47.1 Dysarthria and anarthria; R29.898 Other symptoms and signs involving the musculoskeletal system; I10 Essential (primary) hypertension; E11.51 Type 2 diabetes mellitus with diabetic peripheral angiopathy without gangrene; Z79.4 Long term (current) use of insulin; Z79.82 Long term (current) use of aspirin; F17.200 Nicotine dependence, unspecified, uncomplicated
CPT/HCPCS: 36415; 70450; 80053; 85025; 85610; 85730; 93005; 99284; 99285

== ENCOUNTER 2020-10-10 20:55 | Outpatient (CLI) | payer MEDICARE, MEDICAID | END 2020-10-10 20:56 | disposition short-term general hospital (02) | LOC: EMS 20:55 | PROVIDERS: ATTEND Surgery | DX: R29.818 Other symptoms and signs involving the nervous system (principal) | CPT/HCPCS: A0425; A0428 ==

== ENCOUNTER 2021-01-06 16:54 | Outpatient (CLI) | payer MEDICARE, MEDICAID | END 2021-01-06 16:55 | disposition critical access hospital (66) | LOC: EMS 16:54 | DX: R40.20 Unspecified coma (principal) | CPT/HCPCS: A0425; A0433 ==